=== PATIENT | female | born 1995 | race American Indian/Alaskan Native ===

== ENCOUNTER 2017-05-28 22:36 | Emergency (ER) | payer MEDICAID, OTHER ==
[2017-05-28 22:59] VITALS: BP 111/68
[2017-05-28 23:22] LABS: Basophils % (Auto) 0.9 % (0.0-1.8); Eosinophils % (Auto) 7.2 % (0.0-4.3); Hematocrit 36.1 % (30.3-42.9); Hemoglobin 11.7 gm/dl (10.1-14.3); Mean Corpuscular HGB Conc 32 % (30-34); Mean Corpuscular Hemoglobin 29 pg (28-32); Mean Corpuscular Volume 88 fl (79-97); Platelet Count 164 K/mm3 (140-440); Red Blood Count 4.08 M/mm3 (3.65-5.03); Red Cell Distribution Width 14.1 % (13.2-15.2); White Blood Count 6.3 K/mm3 (4.5-11.0)
[2017-05-28 23:44] LABS: Alanine Aminotransferase 12 units/L (7-56); Albumin 4.4 g/dL (3.9-5); Albumin/Globulin Ratio 1.6 %; Alkaline Phosphatase 49 units/L (35-129); Anion Gap 12 mmol/L; Blood Urea Nitrogen 12 mg/dL (7-17); Calcium 9.2 mg/dL (8.4-10.2); Carbon Dioxide 30 mmol/L (22-30); Chloride 98.9 mmol/L (98-107); Glucose 97 mg/dL (65-100); Potassium 3.6 mmol/L (3.6-5.0); Sodium 137 mmol/L (137-145); Total Protein 7.2 g/dL (6.3-8.2)
[2017-05-29 00:48] LABS: Bilirubin,Urine NEG (Negative); Blood,Urine NEG (Negative); Ketones,Urine NEG (Negative); Leukocyte Esterase,Urine NEG (Negative); Mucus,Urine 2+ /HPF; Nitrite,Urine NEG (Negative); Protein,Urine <15 mg/dL mg/dL (Negative); Urobilinogen,Urine < 2.0 mg/dL (<2.0)
--- NOTE | 2017-05-29 10:43 | ED Elopement Review ---
ED Pt Elopement review - Results review Lab results: Laboratory Tests 05/28/17 05/28/17 05/28/17 23:02 23:02 23:02 WBC 6.3 RBC 4.08 Hgb 11.7 Hct 36.1 MCV 88 MCH 29 MCHC 32 RDW 14.1 Plt Count 164 Lymph % (Auto) 46.5 H [place] % (Auto) 8.1 H Eos % (Auto) 7.2 H Baso % (Auto) 0.9 Lymph # 2.9 [place] # 0.5 Eos # 0.5 H Baso # 0.1 Seg Neutrophils % 37.3 L Seg Neutrophils # 2.3 Sodium 137 Potassium 3.6 Chloride 98.9 Carbon Dioxide 30 Anion Gap 12 BUN 12 Creatinine 0.5 L Estimated GFR > 60 BUN/Creatinine Ratio 24.00 Glucose 97 Calcium 9.2 Total Bilirubin 0.30 AST 15 ALT 12 Alkaline Phosphatase 49 Total Protein 7.2 Albumin 4.4 Albumin/Globulin Ratio 1.6 HCG, Qual Negative Urine Color Urine Turbidity Urine pH Ur Specific [place] Urine Protein Urine Glucose (UA) Urine Ketones Urine Blood Urine Nitrite Urine Bilirubin Urine Urobilinogen Ur Leukocyte Esterase Urine WBC (Auto) Urine RBC (Auto) U Epithel Cells (Auto) Urine Mucus 05/29/17 00:26 WBC RBC Hgb Hct MCV MCH MCHC RDW Plt Count Lymph % (Auto) [place] % (Auto) Eos % (Auto) Baso % (Auto) Lymph # [place] # Eos # Baso # Seg Neutrophils % Seg Neutrophils # Sodium Potassium Chloride Carbon Dioxide Anion Gap BUN Creatinine Estimated GFR BUN/Creatinine Ratio Glucose Calcium Total Bilirubin AST ALT Alkaline Phosphatase Total Protein Albumin Albumin/Globulin Ratio HCG, Qual Urine Color Yellow Urine Turbidity Clear Urine pH 6.0 Ur Specific [place] 1.028 Urine Protein <15 mg/dl Urine Glucose (UA) Neg Urine Ketones Neg Urine Blood Neg Urine Nitrite Neg Urine Bilirubin Neg Urine Urobilinogen < 2.0 Ur Leukocyte Esterase Neg Urine WBC (Auto) 1.0 Urine RBC (Auto) 6.0 U Epithel Cells (Auto) 2.0 Urine Mucus 2+ - Call Back decision Pt Call Back Decision: No action required
== END 2017-05-29 01:50 | disposition left against medical advice (07) ==
LOC: ED 22:36
DX: R10.30 Lower abdominal pain, unspecified (principal); J45.909 Unspecified asthma, uncomplicated; Z53.21 Procedure and treatment not carried out due to patient leaving prior to being seen by health care provider
CPT/HCPCS: 36415; 80053; 81001; 84703; 85025

== ENCOUNTER 2018-07-18 12:06 | Outpatient (CLI) | payer SELFPAY ==
[2018-07-18] MEDS ORDERED: LACTATED RINGERS 500 ML IV ONE (14:00)
--- NOTE | 2018-07-18 15:16 | Ultrasound Report ---
FINAL REPORT PROCEDURE: US OB BPP WO NON-STRESS TECHNIQUE: Sonographic evaluation for breathing, movement, tone, and amniotic fluid volume was performed. CPT 86033 HISTORY: decrease movement COMPARISON: No prior studies are available for comparison. FINDINGS: Amniotic fluid volume: Normal-score 2. At least one vertical pocket > 2 cm or more in vertical axis. breathing: Normal-score 2. movement: Normal-score 2. tone: Normal. Score: 8 of 8. heart rate of 147 beats per minute is detected. Subjectively the amount of amniotic fluid appears normal. Further evaluation was neither requested nor performed. IMPRESSION: Biophysical profile score 8/8. heart rate 147 beats per minute. Subjectively the amount of amniotic fluid appears normal. Further evaluation was neither requested nor performed.
--- NOTE | 2018-07-18 15:28 | Ultrasound Report ---
FINAL REPORT PROCEDURE: US OB LIMITED TECHNIQUE: Limited OB ultrasound performed to evaluate position amniotic fluid index HISTORY: labor COMPARISON: FINDINGS: Single living intrauterine gestation visualized currently vertex presentation with a heart rate of 140 beats per minute. Subjectively the amount of amniotic fluid appears normal. Normal amniotic fluid index measured 18.6 centimeter. Cervix length 3.4 centimeters. Detailed exam of the anatomy was not performed as this was not requested. No placenta previa visualized. The placenta appears to be located anterior grade 1. IMPRESSION: Single living intrauterine gestation visualized currently vertex presentation. Both subjectively and by amniotic fluid index the amount of amniotic fluid appears normal. Further evaluation was neither requested nor performed.
== END 2018-07-18 15:30 | disposition home or self-care (01) ==
LOC: TRG 12:06
PROVIDERS: ATTEND Obstetrics & Gynecology
DX: O47.03 False labor before 37 completed weeks of gestation, third trimester (principal); O26.893 Other specified pregnancy related conditions, third trimester; K21.9 Gastro-esophageal reflux disease without esophagitis; J45.909 Unspecified asthma, uncomplicated; Z3A.32 32 weeks gestation of pregnancy
CPT/HCPCS: 59025; 76815; 76819

== ENCOUNTER 2018-08-02 06:28 | Outpatient (CLI) | payer OTHER ==
[2018-08-02 06:46] VITALS: BP 125/75
[2018-08-02] MEDS ORDERED: LACTATED RINGERS 1,000 ML ONE (07:20)
[2018-08-02] MEDS ORDERED: LACTATED RINGERS 500 ML IV ONE ×2 (08:20→10:09)
--- NOTE | 2018-08-02 09:57 | Ultrasound Report ---
ULTRASOUND BIOPHYSICAL PROFILE: History: Prolonged heart decelerations in triage Technique: Transabdominal ultrasound with Doppler interrogation. 2 - breathing movements 2 - movements 2 - posture and tone 2 - Qualitative amniotic fluid volume 8 - TOTAL SCORE OF POSSIBLE 8 Heart Rate (bpm) 137
--- NOTE | 2018-08-02 09:58 | Ultrasound Report ---
ULTRASOUND OB LIMITED History: Prolonged heart decelerations in triage Technique: Transabdominal ultrasound with Doppler interrogation. Gestation: Single Position: Cephalic Amniotic Fluid: Normal CARLI = 14.1 cm Heart Rate: 143 BPM
[2018-08-02] MEDS ORDERED: BRETHINE SUB-Q SCH (11:00)
== END 2018-08-02 10:30 | disposition home or self-care (01) ==
LOC: TRG 06:28 → LD 08:58 → TRG 10:30
PROVIDERS: ATTEND Obstetrics & Gynecology
DX: O62.8 Other abnormalities of forces of labor (principal); O99.513 Diseases of the respiratory system complicating pregnancy, third trimester; Z3A.34 34 weeks gestation of pregnancy
CPT/HCPCS: 76815; 76819; J3105; J7120; 59025; 96372

== ENCOUNTER 2018-08-05 17:07 | Outpatient (CLI) | payer MEDICAID, OTHER ==
[2018-08-05] MEDS ORDERED: LACTATED RINGERS 500 ML IV ONE (17:22)
[2018-08-05 18:13] VITALS: BP 119/75
[2018-08-05 18:15] LABS: Bacteria,Urine 1+ /HPF (Negative); Bilirubin,Urine NEG (Negative); Blood,Urine NEG (Negative); Color,Urine Yellow (Yellow); Mucus,Urine FEW /HPF; Protein,Urine <15 mg/dL mg/dL (Negative); Urobilinogen,Urine < 2.0 mg/dL (<2.0)
== END 2018-08-05 19:32 | disposition home or self-care (01) ==
LOC: TRG 17:07
PROVIDERS: ATTEND Obstetrics & Gynecology
DX: O47.03 False labor before 37 completed weeks of gestation, third trimester (principal); O99.613 Diseases of the digestive system complicating pregnancy, third trimester; O99.513 Diseases of the respiratory system complicating pregnancy, third trimester; K21.9 Gastro-esophageal reflux disease without esophagitis; J45.909 Unspecified asthma, uncomplicated; Z3A.35 35 weeks gestation of pregnancy
CPT/HCPCS: 59025; 81001

== ENCOUNTER 2018-08-27 18:03 | Outpatient (CLI) | payer MEDICAID ==
[2018-08-27 18:24] VITALS: BP 132/89
== END 2018-08-27 20:13 | disposition home or self-care (01) ==
LOC: TRG 18:03
PROVIDERS: ATTEND Obstetrics & Gynecology
DX: O47.1 False labor at or after 37 completed weeks of gestation (principal); O99.613 Diseases of the digestive system complicating pregnancy, third trimester; O99.513 Diseases of the respiratory system complicating pregnancy, third trimester; J45.909 Unspecified asthma, uncomplicated; K21.9 Gastro-esophageal reflux disease without esophagitis; Z3A.38 38 weeks gestation of pregnancy
CPT/HCPCS: 59025

== ENCOUNTER 2018-08-28 01:39 | Inpatient (IN) | payer MEDICAID ==
[2018-08-28] MEDS ORDERED: LACTATED RINGERS 2,000 ML ONE (04:52)
[2018-08-28] MEDS ORDERED: BRETHINE SUB-Q PRN (05:13)
[2018-08-28] MEDS ORDERED: MINERAL OIL PO PRN (05:13)
[2018-08-28] MEDS ORDERED: BRETHINE IVP PRN (05:13)
[2018-08-28] MEDS ORDERED: SUBLIMAZE IV PRN (05:13)
[2018-08-28 05:34] LABS: Hematocrit 35.5 % (30.3-42.9); Hemoglobin 11.5 gm/dl (10.1-14.3); Mean Corpuscular HGB Conc 33 % (30-34); Mean Corpuscular Hemoglobin 28 pg (28-32); Mean Corpuscular Volume 86 fl (79-97); Platelet Count 199 K/mm3 (140-440); Red Blood Count 4.11 M/mm3 (3.65-5.03); Red Cell Distribution Width 14.3 % (13.2-15.2)
[2018-08-28] MEDS ORDERED: NARCAN 2 MG/2 ML IV PRN (05:50)
[2018-08-28] MEDS ORDERED: PITOCin/NS 30 UNIT/500ML 30 UNITS/500 ML BAG IV SCH (06:00)
[2018-08-28] MEDS ORDERED: PITOCin/NS 20 UNIT/1000ML DRIP 20 UNITS/1,000 ML BAG IV SCH (06:00)
[2018-08-28] MEDS ORDERED: LACTATED RINGERS 1,000 ML IV SCH (06:00)
[2018-08-28] MEDS ORDERED: fentaNYL-BUPIV 2 MCG/ML-0.125% 200 MCG/100 ML BAG EPIDURAL SCH (06:00)
[2018-08-28] MEDS ORDERED: XYLOCAINE 2% INFILTRATI ONE ×2 (06:42→06:43)
--- NOTE | 2018-08-28 07:31 | History and Physical Report ---
History of Present Illness Date of examination: 08/28/18 Date of admission: 08/28/18 04:52 Chief complaint: I'm in labor History of present illness: Patient is a 23 year old Past History Past Medical History: asthma Past Surgical History: no surgical history Family/Genetic History: none Social history: single - Obstetrical History Expected Date of Delivery: 09/08/18 Actual Gestation: 38 Week(s) 3 Day(s) : 2 Number of Living Children: 1 Medications and Allergies Allergies Allergy/AdvReac Type Severity Reaction Status Date / Time No Known Allergies Allergy Verified 04/14/15 16:40 Home Medications Medication Instructions Recorded Confirmed Last Taken Type Pnv 21/Iron Ps,Heme Ppep/Folic 1 each PO QDAY #30 tablet 03/29/14 08/27/18 2 Days Ago Rx [Prefera Ob Tablet] ~08/25/18 Active Meds: Active Medications Ephedrine Sulfate (Ephedrine Sulfate) 10 mg IV Q2M PRN PRN Reason: Hypotension Fentanyl (Sublimaze) 100 mcg IV Q2H PRN PRN Reason: Labor Pain Last Admin: 08/28/18 06:28 Dose: 100 mcg Lactated Ringer's (Lactated Ringers) 1,000 mls @ 125 mls/hr IV DIRECT EVA Last Admin: 08/28/18 05:04 Dose: 125 mls/hr Oxytocin/Sodium Chloride (Pitocin/Ns 20 Unit/1000ml Drip) 20 units in 1,000 mls @ 125 mls/hr IV DIRECT EVA Oxytocin/Sodium Chloride (Pitocin/Ns 30 Unit/500ml) 30 units in 500 mls @ 1 mls /hr IV TITR EVA; Protocol Fentanyl/Bupivacaine/Sodium Chlor (Fentanyl-Bupiv 2 Mcg/Ml-0.125%) 200 mcg in 100 mls @ 12 mls/hr EPIDURAL TITR EVA; Protocol Mineral Oil (Mineral Oil) 30 ml PO QHS PRN PRN Reason: Constipation Naloxone HCl (Narcan 2 Mg/2 Ml) 0.2 mg IV Q5M PRN PRN Reason: Respiratory sedation Terbutaline Sulfate (Brethine) 0.25 mg SUB-Q ONCE PRN PRN Reason: Hyperstimulation/Hypertonicity Terbutaline Sulfate (Brethine) 0.25 mg IVP ONCE PRN PRN Reason: Hyperstimulation/Hypertonicity Review of Systems All systems: negative Genitourinary: leakage of fluid, contractions - Vital Signs Vital signs: Vital Signs Pulse BP 87 129/78 08/28/18 02:17 08/28/18 02:17 Temp Pulse Resp BP Pulse Ox 98 F 88 18 129/63 97 08/28/18 05:30 08/28/18 07:25 08/28/18 05:30 08/28/18 07:25 08/28/18 06:56 - Physical Exam Breasts: Cardiovascular: Regular rate, Normal S1, Normal S2 Lungs: Positive: Clear to auscultation, Normal air movement Abdomen: Positive: normal appearance, soft, normal bowel sounds. Negative: distention, tenderness Genitourinary (Female): Positive: normal external genitalia, normal perenium Vulva: both: normal Vagina: Positive: normal moisture. Negative: discharge Cervix: Negative: lesion, discharge Uterus: Positive: normal size, normal contour Adnexa: both: normal Anus/Rectum: Positive: normal perianal skin, heme negative. Negative: rectal mass, hemorrhoids Extremities: Deep Tendon Reflex Grade: Normal +2 - Obstetrical Cervical Dilatation: 7 Cervical Effacement Percentage: 90 station: -1 Uterine Contraction Pattern: Regular Uterine Contraction Intensity: Moderate Results Result Diagrams: 08/28/18 04:59 Abnormal lab results 08/28/18 Range/Units 04:59 WBC 11.9 H (4.5-11.0) K/mm3 All other labs normal. Assessment and Plan IUP at 38.3 in active labor. Admit to l&D. GBS negative. Patient has had good care since first trimester. Anticipate .
--- NOTE | 2018-08-28 07:36 | Procedure Note ---
OB Delivery Note - Delivery Date of Delivery: 08/28/18 Surgeon: ELEUTERIO HERNANDEZ Estimated blood loss: 200cc - Vaginal Delivery presentation: vertex Delivery position: OA Intrapartum events: none Delivery induction: none Delivery monitor: external FHT, external uterine Route of delivery: Delivery placenta: spontaneous Delivery cord: 3 umbilical vessels Episiotomy: none Delivery laceration: none Anesthesia: none Delivery comments: Viable male delivered over intact perineum at 0701. NO nuchal cord. Apgars 9,9.Weight 6 pounds 15 ounces. Placenta delivered spontaneously and intact with 3vc. No lacerations. Excellent hemostasis. patient tolerated procedure well - Infant A at 1 minute: 9 at 5 minutes: 9 Infant Gender: Male
[2018-08-28] MEDS ORDERED: NORCO 5/325 PO PRN (07:53)
[2018-08-28] MEDS ORDERED: PHENERGAN PR PRN (11:56)
[2018-08-28] MEDS ORDERED: TUCKS PAD TP PRN (11:56)
[2018-08-28] MEDS ORDERED: MILK OF MAGNESIA PO PRN (11:56)
[2018-08-28] MEDS ORDERED: TYLENOL PO PRN (11:56)
[2018-08-28] MEDS ORDERED: BENADRYL PO PRN (11:56)
[2018-08-28] MEDS ORDERED: PHENERGAN PO PRN (11:56)
[2018-08-28] MEDS ORDERED: SODIUM CHLORIDE FLUSH SYRINGE 10 ML IV NR (11:56)
[2018-08-28] MEDS ORDERED: DULCOLAX PR PRN (11:56)
[2018-08-28] MEDS ORDERED: LANSINOH TP PRN (11:56)
[2018-08-28] MEDS ORDERED: ZOFRAN IV PRN (11:56)
[2018-08-28] MEDS: MOTRIN PO SCH ×2 (12:35→18:23)
[2018-08-28] MEDS: NORCO 5/325 PO PRN ×2 (15:04→20:11)
[2018-08-28 20:24] LABS: Hemoglobin 10.1 gm/dl (10.1-14.3)
[2018-08-29] MEDS: MOTRIN PO SCH ×4 (00:06→18:10)
[2018-08-29] MEDS: NORCO 5/325 PO PRN ×6 (00:11→22:01)
[2018-08-29] MEDS: COLACE PO SCH ×2 (09:39→22:04)
[2018-08-29] MEDS: PRENATAL VITAMIN PO SCH (09:39)
--- NOTE | 2018-08-29 10:36 | Progress Note ---
Assessment and Plan PPD 1 s/p . Doing well. Patient states that she has back pain from where the epidural was attempted and is requesting stronger pain meds. I advised patien that the area was probably bruised and that she should try ice packs to help resolve the inflammation. Patient not sure if she wants to be discharged on today or not. Subjective - Subjective Date of service: 08/29/18 Interval history: Patient is a 23 year old Patient reports: appetite normal, voiding normally, pain well controlled, ambulating normally Gregory: doing well Objective - Vital Signs Latest vital signs: Vital Signs Temp Pulse Resp BP BP Pulse Ox 08/29/18 09:38 18 08/29/18 08:44 98.5 F 75 18 112/68 94 08/29/18 05:35 18 08/29/18 05:30 18 08/29/18 01:11 18 08/29/18 01:06 18 08/29/18 00:11 18 08/29/18 00:09 98.2 F 81 16 108/61 97 08/29/18 00:06 18 08/28/18 21:11 18 08/28/18 20:20 98.2 F 85 18 114/63 98 08/28/18 12:02 98 F 89 20 125/56 98 - Exam Cardiovascular: Present: Regular rate, Normal S1, Normal S2 Lungs: Present: Clear to auscultation Abdomen: Present: normal appearance, soft Uterus: Present: normal, firm Extremities: Present: normal
[2018-08-30] MEDS: MOTRIN PO SCH (00:30)
[2018-08-30] MEDS: NORCO 5/325 PO PRN ×5 (03:06→20:28)
--- NOTE | 2018-08-30 07:46 | Progress Note ---
Assessment and Plan A: PPD#2 s/p at term, Continued pain at epidural site P: Anesthesia consult Abdominal binder Milk of Magnesia PRN Anticipate discharge later today Subjective - Subjective Date of service: 08/30/18 Principal diagnosis: s/p at term Interval history: Pt continues to report pain at the epidural site. Otherwise, she reports that her pain is not well controlled yet. No issues ambulating or voiding. Patient reports: appetite normal, voiding normally, pain poorly controlled, ambulating normally, no nauseated : doing well Objective - Vital Signs Latest vital signs: Vital Signs Temp Pulse Resp BP BP Pulse Ox 08/30/18 01:03 98 F 80 20 114/73 08/29/18 18:10 18 08/29/18 16:21 98.4 F 70 16 106/57 95 08/29/18 13:50 18 08/29/18 12:25 18 08/29/18 09:38 18 08/29/18 08:44 98.5 F 75 18 112/68 94 Intake and Output 08/29/18 08/30/18 08/30/18 22:59 06:59 14:59 Intake Total 360 480 Balance 360 480 Intake: Intake, Free Water 360 480 Other: # Voids Void 2 5 - Exam Breasts: Present: deferred Cardiovascular: Present: Regular rate Lungs: Present: Clear to auscultation Abdomen: Present: soft Uterus: Present: fundal height below umbilicus Extremities: Present: normal
--- NOTE | 2018-08-30 07:48 | Discharge Summary ---
Providers - Providers Date of Admission: 08/28/18 04:52 Date of discharge: 08/30/18 Attending physician: LUCIANA VILLELA 08/30/18 07:43 Consult to Anesthesiology [CONS] Routine Reason For Exam: PPD#2 s/p , pain at epidural site Consulting Provider: JUAN ARMAS Primary care physician: LUCIANA VILLELA Hospitalization Reason for admission: active labor Delivery: Procedure details: Please see delivery note. Episiotomy: none Laceration: none Other procedures: none Discharge diagnosis: IUP at term delivered baby: male Hospital course: Pt was admitted in active labor and went on to have a spontaneous vaginal delivery which she tolerated well. Her course was complicated by pain at the epidural site which was evaluated by anesthesia. She was discharged on PPD#2 and she will follow up in 2 weeks in the office with Dr Villela. Condition at discharge: Stable Disposition: DC-01 TO HOME OR SELFCARE - Discharge Diagnoses (1) Term of male Status: Acute (2) Anemia Status: Acute Qualifiers: Anemia type: unspecified type Qualified Code(s): D64.9 - Anemia, unspecified Plan - Discharge Medications Prescriptions: HYDROcodone/ACETAMINOPHEN [Warren 5-325 Tablet] 1 each PO Q4H #20 tablet Ibuprofen [Motrin] 800 mg PO Q8HR PRN #40 tablet PRN Reason: Pain, Mild (1-3) - Provider Discharge Summary Activity: routine, no sex for 6 weeks, no heavy lifting 4 weeks, no strenuous exercise Diet: routine Instructions: routine Additional instructions: [] Smoking cessation referral if applicable(refer to patient education folder for contact #) [] Refer to [facility] Book[facility] Call your doctor immediately for: * Fever > 100.5 * Heavy vaginal bleeding ( >1 pad per hour) * Severe persistent headache * Shortness of breath * Reddened, hot, painful area to leg or breast * Drainage or odor from incision. * Keep incision clean and dry at all times and follow doctor's instructions regarding bathing/showering Please schedule your son's circumcision before he is one month old. - Follow up plan Follow up: LUCIANA VILLELA MD [Primary Care Provider] - 09/13/18 (Please schedule follow up appt ) Forms: [facility] Discharge Summary
[2018-08-30] MEDS: MOTRIN PO PRN ×3 (08:37→23:57)
[2018-08-30] MEDS: PRENATAL VITAMIN PO SCH (10:30)
[2018-08-30] MEDS: COLACE PO SCH ×2 (10:31→22:07)
[2018-08-30] MEDS: FLEXERIL PO SCH ×2 (14:49→20:27)
[2018-08-30 16:08] LABS: INR 0.91 (0.87-1.13)
[2018-08-30 16:09] LABS: Partial Thromboplastin Time 27.3 Sec. (24.2-36.6)
--- NOTE | 2018-08-30 17:45 | Event Note ---
Date: 08/30/18 The patient has been evaluated by anesthesia. The recommendation is for Flexeril overnight. Her discharge has been held until tomorrow. If her pain is not improved by tomorrow, plans for additional imaging to ascertain the cause of persistent back pain. Continue to monitor clinically.
[2018-08-31] MEDS: NORCO 5/325 PO PRN ×4 (04:01→14:19)
--- NOTE | 2018-08-31 07:32 | Progress Note ---
Subjective Date of service: 08/31/18 Principal diagnosis: s/p Interval history: Patient states there is no interval worsening of her leg symptoms overnight since institution of using flexeril 5mg TID. Patient is walking to the restroom with full strength and stability. No focal neurlogic deficits. States there is an underlying ache of 4/10 and a intermittent throb of pain elevating to 6/10. She has been asking for [place] every 4 hours. Patient has 5/5 strength in bilateral lower limbs. Symmetric sensation to soft touch in bilateral lower limbs. Patients PT/PTT in normal range Back Pain: Back Pain A common occurrence. Most often from attempted epidural placement, , Positioning during labor, or Gestation Continue [place], and Ibuprofen as ordered Increase Flexeril to 10mg TID Unlikely of expanding hematoma Will order Spine CT to completely rule out Objective - Constitutional Vitals: Vital Signs - 12hr 08/30/18 08/30/18 08/31/18 20:28 23:57 00:00 Temperature 98.2 F Pulse Rate 72 Respiratory 20 20 18 Rate Blood Pressure 127/54 [Left] 08/31/18 04:01 Temperature Pulse Rate Respiratory 18 Rate Blood Pressure [Left] - Labs CBC & Chem 7: 08/28/18 20:05
--- NOTE | 2018-08-31 08:15 | Progress Note ---
Assessment and Plan A: PPD#3 s/p at term, Continued pain at epidural site P: Follow up CT scan Anticipate discharge later today with follow up in 1 week in the office - Patient Problems (1) Term of male Current Visit: Yes Status: Acute (2) Anemia Current Visit: Yes Status: Acute Qualifiers: Anemia type: unspecified type Qualified Code(s): D64.9 - Anemia, unspecified Subjective - Subjective Date of service: 08/31/18 Principal diagnosis: s/p at term, back pain Interval history: Discharge held yesterday for observation of back pain. Pain still remains. CT lumbar spine ordered. Plan to increase Flexeril to 10mg and observe pattern. No other obstetric complaints. Patient reports: appetite normal, voiding normally, flatus, pain poorly controlled, ambulating normally, no bowel movement [place]: doing well Objective - Vital Signs Latest vital signs: Vital Signs Temp Pulse Resp BP 08/31/18 04:01 18 08/31/18 00:00 98.2 F 72 18 127/54 08/30/18 23:57 20 08/30/18 20:28 20 08/30/18 16:02 98.6 F 73 18 133/87 08/30/18 09:13 98.0 F 76 18 135/69 Intake and Output 08/30/18 08/31/18 08/31/18 22:59 06:59 14:59 Intake Total 240 600 Balance 240 600 Intake: Oral 240 600 Other: Total, Intake Amount 240 120 # Voids Void 1 - Exam Breasts: Present: deferred Cardiovascular: Present: Regular rate Lungs: Present: Clear to auscultation Abdomen: Present: soft Uterus: Present: fundal height below umbilicus Extremities: Present: normal
--- NOTE | 2018-08-31 08:24 | Cat Scan Report ---
CT SCAN OF THE LUMBAR SPINE: HISTORY: Rule out epidural hematoma. TECHNIQUE: Contiguous 1.25 mm axial images of the lumbar spine were obtained. Sagittal and coronal reformatted images. FINDINGS: There is normal alignment of the lumbar spine. The body, pedicles and posterior ligaments appear normal. No evidence of fracture or subluxation is seen. The spinal canal appears normal. The prevertebral soft tissues appear normal. IMPRESSION: Unremarkable CT of the lumbar spine. Please note that intraspinal contents are poorly imaged on noncontrast CT. No large epidural hematoma is suspected on this limited exam. If further evaluation is needed MRI would provide the most information.
[2018-08-31] MEDS: FLEXERIL PO SCH ×2 (08:58→14:19)
[2018-08-31] MEDS: PRENATAL VITAMIN PO SCH (08:58)
[2018-08-31] MEDS: COLACE PO SCH (08:58)
[2018-08-31] MEDS: MOTRIN PO PRN (10:42)
[2018-08-31 16:43] VITALS: BP 122/69
== END 2018-08-31 16:30 | disposition home or self-care (01) | DRG 774 ==
LOC: TRG 01:39 → LD 04:52 → OB 11:14
PROVIDERS: ADMIT Obstetrics & Gynecology; ATTEND Obstetrics & Gynecology
PROC: 10E0XZZ Delivery of Products of Conception, External Approach (ICD-10-PCS; principal; 2018-08-28)
DX: O99.52 Diseases of the respiratory system complicating childbirth (principal); O90.89 Other complications of the puerperium, not elsewhere classified; M54.9 Dorsalgia, unspecified; Z37.0 Single live birth; Z3A.38 38 weeks gestation of pregnancy; Z79.899 Other long term (current) drug therapy
CPT/HCPCS: 36415; 72131; 85014; 85018; 85027; 85610; 85730; 86592; 86850; 86900; 86901; 99211; G0463; J2590; J3010; J7120

== ENCOUNTER 2019-11-15 00:23 | Emergency (ER) | payer BC, MEDICAID | END 2019-11-15 09:55 | disposition home or self-care (01) | LOC: ED 00:23 | DX: Z79.899 Other long term (current) drug therapy (principal) | CPT/HCPCS: 87400 ==

== ENCOUNTER 2019-11-15 11:20 | Emergency (ER) | payer SELFPAY | END 2019-11-15 11:39 | disposition left against medical advice (07) | LOC: ED 11:20 | DX: R50.9 Fever, unspecified (principal); Z53.21 Procedure and treatment not carried out due to patient leaving prior to being seen by health care provider | CPT/HCPCS: 99281 ==

== ENCOUNTER 2021-06-02 13:22 | Emergency (ER) | payer SELFPAY ==
[2021-06-02 14:23] VITALS: BP 108/60
[2021-06-02 16:01] LABS: Bacteria,Urine 1+ /HPF (Negative); Bilirubin,Urine NEG (Negative); Blood,Urine NEG (Negative); Color,Urine Yellow (Yellow); Mucus,Urine 2+ /HPF; Protein,Urine <15 mg/dL mg/dL (Negative); Urobilinogen,Urine < 2.0 mg/dL (<2.0)
[2021-06-02 16:04] LABS: HCG Qualitative,Urine Negative (Negative)
[2021-06-02 16:42] LABS: Basophils % (Auto) 0.5 % (0.0-1.8); Eosinophils # (Auto) 0.6 K/mm3 (0.0-0.4); Hematocrit 42.5 % (30.3-42.9); Lymphocytes # (Auto) 2.8 K/mm3 (1.2-5.4); Lymphocytes % (Auto) 34.9 % (13.4-35.0); Mean Corpuscular HGB Conc 33 % (30-34); Mean Corpuscular Volume 92 fl (79-97); Monocytes # (Auto) 0.6 K/mm3 (0.0-0.8); Monocytes % (Auto) 7.5 % (0.0-7.3); Platelet Count 188 K/mm3 (140-440); Red Blood Count 4.62 M/mm3 (3.65-5.03); Red Cell Distribution Width 12.9 % (13.2-15.2)
--- NOTE | 2021-06-02 16:50 | Emergency Department Report ---
ED General Adult HPI - General Chief complaint: Abdominal Pain Stated complaint: / CRAMPING/ LOWER ABDOMINAL PAIN Time Seen by Provider: 06/02/21 15:31 Source: patient Mode of arrival: Ambulatory Limitations: No Limitations - History of Present Illness Initial comments: Patient is a 26-year-old female presents emergency room complaints of lower abdominal cramping that began last night. She states that she believes she may be . She reports that she took an at home test and states it was positive. Her last menstrual cycle was 05/02/2021. She denies any fever, nausea, vomiting, diarrhea, urinary symptoms, abnormal vaginal discharge, vaginal bleeding. pmhx childhood asthma. No allergies medications. - Related Data Previous Rx's Medication Instructions Recorded Last Taken Type Pnv 21/Iron Ps,Heme Ppep/Folic 1 each PO QDAY #30 tablet 03/29/14 08/26/18 10:00 Rx [Prefera Ob Tablet] HYDROcodone/ACETAMINOPHEN [[place] 1 each PO Q4H #20 tablet 08/28/18 Unknown Rx 5-325 Tablet] Ibuprofen [Motrin] 800 mg PO Q8HR PRN #40 tablet 08/28/18 Unknown Rx Cyclobenzaprine [Flexeril] 10 mg PO TID PRN #30 tablet 08/31/18 Unknown Rx Oseltamivir [Tamiflu] 75 mg PO BID 5 Days #10 capsule 11/15/19 Unknown Rx Allergies Allergy/AdvReac Type Severity Reaction Status Date / Time No Known Allergies Allergy Verified 06/02/21 14:19 ED Review of Systems ROS: Stated complaint: / CRAMPING/ LOWER ABDOMINAL PAIN Other details as noted in HPI Comment: All other systems reviewed and negative ED Past Medical Hx - Past Medical History Hx Hypertension: No Hx Congestive Heart Failure: No Hx Diabetes: No Hx Deep Vein Thrombosis: No Hx Renal Disease: No Hx Sickle Cell Disease: No Hx Seizures: No Hx Asthma: Yes (childhood) Hx COPD: No Hx HIV: No - Surgical History Past Surgical History?: No - Social History Smoking Status: Never Smoker Substance Use Type: None - Medications Home Medications: Home Medications Medication Instructions Recorded Confirmed Last Taken Type Pnv 21/Iron Ps,Heme Ppep/Folic 1 each PO QDAY #30 tablet 03/29/14 08/28/18 08/26/18 10:00 Rx [Prefera Ob Tablet] HYDROcodone/ACETAMINOPHEN [[place] 1 each PO Q4H #20 tablet 08/28/18 Unknown Rx 5-325 Tablet] Ibuprofen [Motrin] 800 mg PO Q8HR PRN #40 tablet 08/28/18 Unknown Rx Cyclobenzaprine [Flexeril] 10 mg PO TID PRN #30 tablet 08/31/18 Unknown Rx Oseltamivir [Tamiflu] 75 mg PO BID 5 Days #10 capsule 11/15/19 Unknown Rx ED Physical Exam - General Limitations: No Limitations General appearance: alert, in no apparent distress - Head Head exam: Present: atraumatic, normocephalic - Eye Eye exam: Present: normal appearance - ENT ENT exam: Present: mucous membranes moist - Respiratory Respiratory exam: Present: normal lung sounds bilaterally. Absent: respiratory distress, wheezes, rales, rhonchi, stridor, chest wall tenderness, accessory muscle use, decreased breath sounds, prolonged expiratory - Cardiovascular Cardiovascular Exam: Present: regular rate, normal rhythm, normal heart sounds. Absent: systolic murmur, diastolic murmur, rubs, gallop - GI/Abdominal GI/Abdominal exam: Present: soft, normal bowel sounds. Absent: distended, tenderness, guarding, rebound, rigid - Neurological Exam Neurological exam: Present: alert, oriented X3 - Psychiatric Psychiatric exam: Present: normal affect, normal mood - Skin Skin exam: Present: warm, dry, intact ED Course Vital Signs 06/02/21 14:21 Temperature 98.8 F Pulse Rate 82 Respiratory 18 Rate Blood Pressure 108/60 O2 Sat by Pulse 100 Oximetry ED Medical Decision Making - Lab Data Result diagrams: 06/02/21 15:35 06/02/21 15:35 - Radiology Data Radiology results: report reviewed Ordering Physician: JAROCHO GALLARDO Date of Service: 06/02/21 Procedure(s): US OB <= 14 weeks fetus Accession Number(s): [id number] cc: JAROCHO GALLARDO TRANSABDOMINAL AND TRANSVAGINAL OB PELVIC ULTRASOUND INDICATION / CLINICAL INFORMATION: Pelvic pain and cramping. COMPARISON: None available. FINDINGS: Transabdominal: The uterus measures 9.9 x 4.2 x 4.4 cm. There is a 5 week 2 day gestational sac in the uterine fundus. No fibroids are seen. The right ovary measures 3.1 x 2.1 x 2.3 cm and the left ovary 3.9 x 2.3 x 2.8 cm. There is normal blood flow to both ovaries on Doppler exam. There is no evidence of extraovarian mass or free fluid. Images of the urinary bladder are normal. Transvaginal: There is an intrauterine gestational sac. There is a questionable pole. No cardiac activity is seen. I do not identify a yolk sac. No implantation hemorrhage is appreciated. The right ovary measures 3.4 x 1.9 x 2.7 cm and contains a 1.9 cm corpus luteal cyst. The left ovary measures 2.2 x 1.5 x 1.7 cm. I see no evidence of extraovarian mass or free fluid. IMPRESSION: 1. 5 week 2 day intrauterine is of uncertain viability. A follow-up ultrasound in 7-10 days may be helpful in further evaluation. 2. No evidence of extraovarian mass or free fluid. Signer Name: Vega East MD Signed: 06/02/2021 7:42 PM Workstation Name: [id number] Transcribed By: RT Dictated By: Vega East MD Electronically Authenticated By: Vega East MD Signed Date/Time: 06/02/211941 DD/ 34 TD/TT: - Medical Decision Making Patient is a 26-year-old female presents emergency room complaints of lower abdominal cramping that began last night. She states that she believes she may be . She reports that she took an at home test and states it was positive. Her last menstrual cycle was 05/02/2021. She denies any fever, nausea, vomiting, diarrhea, urinary symptoms, abnormal vaginal discharge, vaginal bleeding. pmhx childhood asthma. No allergies medications. Vitals are normal. No abdominal tenderness on exam, no guarding, no rebound no rigidity, normal sounds no peritoneal signs. UA without evidence of UTI, there are many epithelial cells likely due to contamination, patient is not having urinary symptoms. Urine is negative. Labs ordered. hCG quant is 3937. OB ultrasound: 1. 5 week 2 day intrauterine is of uncertain viability. A follow-up ultrasound in 7-10 days may be helpful in further evaluation. 2. No evidence of extraovarian mass or free fluid. Discussed all results with patient and answer questions. Advised patient Please follow-up with an LANDSCAPING SPECIALIST. You need to have a repeat ultrasound by LANDSCAPING SPECIALIST in 7 to 10 days for viability. May take Tylenol as needed for any cramping. Increase your water intake. Take a vitamin [id number].Return to emergency room for new or worsening symptoms. Critical care attestation.: If time is entered above; I have spent that time in minutes in the direct care of this critically ill patient, excluding procedure time. ED Disposition Clinical Impression: Abdominal cramping Qualifiers: Weeks of gestation: less than 8 weeks Qualified Code(s): Z3A.01 - Less than 8 weeks gestation of Disposition: DC- TO HOME OR SELFCARE Is pt being admited?: No Does the pt Need Aspirin: No Condition: Stable Instructions: First Trimester of , [id number], Abdominal Pain (ED) Additional Instructions: Please follow-up with an LANDSCAPING SPECIALIST. You need to have a repeat ultrasound by LANDSCAPING SPECIALIST in 7 to 10 days for viability. May take Tylenol as needed for any cramping. Increase your water intake. Take a vitamin [id number]. Return to emergency room for new or worsening symptoms. PAC - Aid Clinic Address: [address] [place] [address] [address], [place] [address] Referrals: [facility] [Provider Group] - 2-3 Days TEX CASTRO MD [Staff Physician] - 2-3 Days Time of Disposition: 19:49 Print Language: ECUADOREAN
[2021-06-02 16:55] LABS: Alanine Aminotransferase 15 units/L (7-56); Albumin 4.5 g/dL (3.9-5); Blood Urea Nitrogen 10 mg/dL (7-17); Calcium 9.4 mg/dL (8.4-10.2); Hemolysis Index 14
[2021-06-02 17:01] LABS: BUN/Creatinine Ratio 17
--- NOTE | 2021-06-02 19:46 | Ultrasound Report ---
TRANSABDOMINAL AND TRANSVAGINAL OB PELVIC ULTRASOUND INDICATION / CLINICAL INFORMATION: Pelvic pain and cramping. COMPARISON: None available. FINDINGS: Transabdominal: The uterus measures 9.9 x 4.2 x 4.4 cm. There is a 5 week 2 day gestational sac in th e uterine fundus. No fibroids are seen. The right ovary measures 3.1 x 2.1 x 2.3 cm and the left ovar y 3.9 x 2.3 x 2.8 cm. There is normal blood flow to both ovaries on Doppler exam. There is no evidenc e of extraovarian mass or free fluid. Images of the urinary bladder are normal. Transvaginal: There is an intrauterine gestational sac. There is a questionable pole. No cardia c activity is seen. I do not identify a yolk sac. No implantation hemorrhage is appreciated. The righ t ovary measures 3.4 x 1.9 x 2.7 cm and contains a 1.9 cm corpus luteal cyst. The left ovary measures 2.2 x 1.5 x 1.7 cm. I see no evidence of extraovarian mass or free fluid. IMPRESSION: 1. 5 week 2 day intrauterine is of uncertain viability. A follow-up ultrasound in 7-10 days may be helpful in further evaluation. 2. No evidence of extraovarian mass or free fluid. Signer Name: Vega East MD Signed: 06/02/2021 7:42 PM Workstation Name: [id number]
== END 2021-06-02 16:20 | disposition home or self-care (01) ==
LOC: ED 13:22
DX: O26.891 Other specified pregnancy related conditions, first trimester (principal); R10.30 Lower abdominal pain, unspecified; Z3A.01 Less than 8 weeks gestation of pregnancy; J45.909 Unspecified asthma, uncomplicated; Z79.899 Other long term (current) drug therapy
CPT/HCPCS: 36415; 76801; 76817; 80053; 81001; 81025; 84702; 85025; 99284

== ENCOUNTER 2021-11-28 10:57 | Outpatient (CLI) | payer MEDICAID ==
[2021-11-28] MEDS ORDERED: LACTATED RINGERS 1,000 ML IV ONE (11:31)
[2021-11-28 11:52] LABS: Bilirubin,Urine NEG (Negative); Blood,Urine SM (Negative); Color,Urine Yellow (Yellow); Mucus,Urine 3+ /HPF; Urobilinogen,Urine < 2.0 mg/dL (<2.0)
[2021-11-28 12:07] LABS: Amphetamine Screen,Urine Negative; Benzodiazepines Screen,Urine Negative; Cannabinoid Screen,Urine Negative; Cocaine Screen,Urine Negative; Methadone Screen,Urine Negative; Opiate Screen,Urine Negative
[2021-11-28 14:15] VITALS: BP 109/65
--- NOTE | 2021-11-28 15:37 | Ultrasound Report ---
OB Ultrasound Biophysical profile ultrasound HISTORY: no pnc. TECHNIQUE: Grayscale and color imaging performed. COMPARISON: None FINDINGS: There is a single viable intrauterine gestation with cephalic presentation. CARLI is 13 cm wh ich is within normal limits. Placenta is posterior/fundal with no evidence of placenta previa. Heart rate is 150 bpm. EGA by ultrasound is 30 weeks and 4 days with delivery date of 02/02/2022. Clinical EGA is 31 weeks an d 0 days. Anatomic survey was not performed. On biophysical profile, the fetus received a score of 2 out of 2 for breathing, tone, movement, and A FI. Total score was 8 out of 8. IMPRESSION: 1. Single viable intrauterine gestation as above. 2. Normal biophysical profile. Signer Name: Brendan Carpenter MD Signed: 11/28/2021 3:33 PM Workstation Name: [id number]
== END 2021-11-28 15:27 | disposition home or self-care (01) ==
LOC: TRG 10:57 → APU 10:59 → TRG 15:27
PROVIDERS: ATTEND Obstetrics & Gynecology
DX: O62.9 Abnormality of forces of labor, unspecified (principal); O99.513 Diseases of the respiratory system complicating pregnancy, third trimester; J45.909 Unspecified asthma, uncomplicated; O99.613 Diseases of the digestive system complicating pregnancy, third trimester; K21.9 Gastro-esophageal reflux disease without esophagitis; Z3A.31 31 weeks gestation of pregnancy
CPT/HCPCS: 59025; 76816; 76819; 80307; 81001; 96361; 96365; J0690; J7120

== ENCOUNTER 2021-12-25 10:12 | Outpatient (CLI) | payer MEDICAID ==
[2021-12-25] MEDS ORDERED: LACTATED RINGERS 1,000 ML IV ONE (11:04)
[2021-12-25 11:23] LABS: Bilirubin,Urine NEG (Negative); Blood,Urine SM (Negative); Color,Urine Yellow (Yellow); Protein,Urine <15 mg/dL mg/dL (Negative); Urobilinogen,Urine < 2.0 mg/dL (<2.0)
[2021-12-25 11:27] LABS: Bacteria,Urine 2+ /HPF (Negative)
[2021-12-25] MEDS ORDERED: TERBUTALINE 1 MG/1 ML INJ SUB-Q SCH (13:00)
[2021-12-25] MEDS ORDERED: NIFEdipine*For Tocolysis only* 10 MG CAPSULE PO SCH (13:00)
[2021-12-25 14:20] VITALS: BP 112/64
[2021-12-26] MEDS ORDERED: NIFEdipine XL 30 MG TAB PO ONE (12:30)
== END 2021-12-25 14:30 | disposition home or self-care (01) ==
LOC: TRG 10:12 → APU 10:15 → TRG 14:30
PROVIDERS: ATTEND Obstetrics & Gynecology
DX: O62.9 Abnormality of forces of labor, unspecified (principal); Z3A.34 34 weeks gestation of pregnancy
CPT/HCPCS: 59025; 81001; 96360; J7120; 96361

== ENCOUNTER 2022-01-06 12:18 | Outpatient (CLI) | payer MEDICAID ==
[2022-01-06] MEDS ORDERED: LACTATED RINGERS 1,000 ML IV ONE (13:03)
[2022-01-06 15:28] LABS: Bacteria,Urine 1+ /HPF (Negative); Mucus,Urine 1+ /HPF
[2022-01-06 16:15] LABS: Bilirubin,Urine Negative (Negative); Blood,Urine Negative (Negative); Color,Urine Yellow (Yellow)
[2022-01-06 16:17] LABS: Protein,Urine <15 mg/dL mg/dL (Negative)
[2022-01-06 16:40] VITALS: BP 120/60
== END 2022-01-06 16:45 | disposition home or self-care (01) ==
LOC: TRG 12:18 → APU 12:21 → TRG 16:45
PROVIDERS: ATTEND Obstetrics & Gynecology
DX: O26.893 Other specified pregnancy related conditions, third trimester (principal); R10.30 Lower abdominal pain, unspecified; O62.9 Abnormality of forces of labor, unspecified; Z3A.36 36 weeks gestation of pregnancy
CPT/HCPCS: 59025; 81001; 87086; 96360; J7120

== ENCOUNTER 2022-01-16 12:06 | Outpatient (CLI) | payer MEDICAID ==
[2022-01-16 12:25] VITALS: BP 116/68
--- NOTE | 2022-01-16 13:23 | Ultrasound Report ---
ULTRASOUND BIOPHYSICAL PROFILE INDICATION: decreased fm. COMPARISON: Biophysical profile 11/28/2021 FINDINGS: BREATHING MOVEMENT = 2 GROSS BODY MOVEMENT = 2 TONE = 2 QUALITATIVE AMNIOTIC FLUID VOLUME = 2 TOTAL BIOPHYSICAL SCORE = 06/30 AMNIOTIC FLUID INDEX (cm) = 8.7 PRESENTATION: Cephalic. HEART RATE (beats per minute): 139 IMPRESSION: 1. biophysical profile = 06/30 Signer Name: Tom Dennis MD Signed: 01/16/2022 1:19 PM Workstation Name: [id number]
== END 2022-01-16 13:35 | disposition home or self-care (01) ==
LOC: TRG 12:06 → APU 12:07 → TRG 13:35
PROVIDERS: ATTEND Obstetrics & Gynecology
DX: Z34.93 Encounter for supervision of normal pregnancy, unspecified, third trimester (principal); Z3A.39 39 weeks gestation of pregnancy
CPT/HCPCS: 59025; 76815; 76819

== ENCOUNTER 2022-01-23 17:00 | Inpatient (IN) | payer MEDICAID ==
[2022-01-23] MEDS ORDERED: LIDOCAINE (2%) 20 MG/1 ML VIAL 20 ML MDV INFILTRATI ONE (19:30)
[2022-01-23] MEDS ORDERED: MINERAL OIL 30 ML ORAL LIQD PO PRN (19:30)
[2022-01-23] MEDS ORDERED: miSOPROStol 200 MCG TAB PR PRN (19:30)
[2022-01-23] MEDS ORDERED: ONDANSETRON 4 MG/2 ML INJ IV PRN ×2 (19:30→20:03)
[2022-01-23] MEDS ORDERED: OXYTOCIN 10 UNIT/1 ML INJ IM PRN (19:30)
[2022-01-23] MEDS ORDERED: NALOXONE 0.4 MG/1 ML INJ IV PRN (19:30)
[2022-01-23] MEDS ORDERED: BUTORPHANOL 2 MG/1 ML INJ IV PRN (19:30)
[2022-01-23] MEDS ORDERED: CARBOPROST TROMETHAMINE 250 MCG/1 ML INJ IM PRN (19:30)
[2022-01-23] MEDS ORDERED: LOPERAMIDE 2 MG CAP PO PRN (19:30)
[2022-01-23] MEDS ORDERED: TERBUTALINE 1 MG/1 ML INJ SUB-Q PRN (19:30)
[2022-01-23] MEDS ORDERED: LACTATED RINGERS 1,000 ML IV SCH ×2 (19:30→22:00)
[2022-01-23] MEDS ORDERED: METHYLERGONOVINE MALEATE 0.2 MG/ML VIAL IM PRN (19:30)
[2022-01-23] MEDS ORDERED: ACETAMINOPHEN 325 MG TAB PO PRN (19:30)
[2022-01-23] MEDS ORDERED: fentaNYL 100 MCG/2 ML INJ IV PRN (19:30)
[2022-01-23] MEDS ORDERED: ePHEDrine SULFATE 50 MG/1 ML INJ IV PRN ×2 (19:30→20:03)
[2022-01-23] MEDS ORDERED: OXYTOCIN DRIP 30 UNITS/500 ML BAG IV SCH ×3 (20:00→22:00)
[2022-01-23] MEDS ORDERED: NalbUPHINE 10 MG/1 ML INJ IV PRN (20:03)
[2022-01-23] MEDS ORDERED: LACTATED RINGERS 250 ML IV SOLN IV ONE (20:03)
[2022-01-23] MEDS ORDERED: diphenhydrAMINE 50 MG/ML VIAL IV PRN (20:03)
[2022-01-23] MEDS ORDERED: NALOXONE 2 MG/2 ML INJ IV PRN (20:03)
--- NOTE | 2022-01-23 20:05 | Anesthesia Consultation ---
Anesthesia Consult and Med Hx Date of service: 01/23/22 - Airway Anesthetic Teeth Evaluation: Good ROM Head & Neck: Adequate Mental/Hyoid Distance: Adequate Mallampati Class: Class II Intubation Access Assessment: Probably Good - Pulmonary Exam CTA: Yes - Cardiac Exam Cardiac Exam: RRR - Pre-Operative Health Status ASA Pre-Surgery Classification: ASA2 Proposed Anesthetic Plan: Epidural - Pulmonary Hx Smoking: No Hx Asthma: Yes COPD: No Hx Pneumonia: No Hx Sleep Apnea: No - Cardiovascular System Hx Hypertension: No Hx Heart Attack/AMI: No Hx Angina: No - Central Nervous System Hx Seizures: No Hx Psychiatric Problems: No - Gastrointestinal Hx Gastroesophageal Reflux Disease: No - Endocrine Hx Renal Disease: No Hx End Stage Renal Disease: No Hx Liver Disease: No Hx Insulin Dependent Diabetes: No Hx Non-Insulin Dependent Diabetes: No Hx Hypothyroidism: No Hx Hyperthyroidism: No - Hematic Hx Anemia: No Hx Sickle Cell Disease: No - Other Systems Hx Alcohol Use: Yes
[2022-01-23 20:17] LABS: Hematocrit 31.9 % (30.3-42.9); Hemoglobin 10.6 gm/dl (10.1-14.3); Mean Corpuscular HGB Conc 33 % (30-34); Mean Corpuscular Volume 83 fl (79-97); Platelet Count 193 K/mm3 (140-440); Red Blood Count 3.85 M/mm3 (3.65-5.03); Red Cell Distribution Width 13.9 % (13.2-15.2)
[2022-01-23] MEDS ORDERED: ePHEDrine SULFATE 50 MG/1 ML INJ ONE (20:24)
--- NOTE | 2022-01-23 20:49 | Progress Note ---
Labor Epidural - Labor Epidural Start Time: 22:30 Stop Time: 22:45 Performed by:: MIRIAM VICKERS Procedure: Patient is requesting epidural for labor and pain. H&P, labs were reviewed. Patient IDed, H&P reviewed, all questions and concerns were answered, and consent was signed. Timeout was performed at bedside. Patient in sitting position. Sterile prep and drape was performed. 3ml of 1% lidocaine skin wheal at L[3]- L [4]. 17-gauge Tuohy epidural needle was advanced to loss of resistance with air technique 6.5cm. Negative CSF negative blood. Epidural catheter advanced to [12] centimeters. [negative] Aspiration [negative] test dose. Sterile dressing applied. Patient tolerated procedure.
[2022-01-23] MEDS ORDERED: fentaNYL-BUPIV 2 MCG/ML-0.125% 200 MCG/100 ML BAG EPIDURAL SCH (21:00)
[2022-01-23] MEDS ORDERED: ceFAZolin/Water 2 GM/20 ML 2 GM/20 ML SYRINGE IV NR (22:00)
[2022-01-23] MEDS ORDERED: FAMOTIDINE 20 MG/2 ML INJ IV ONE (22:00)
[2022-01-23] MEDS ORDERED: METOCLOPRAMIDE 10 MG/2 ML INJ IV ONE (22:00)
[2022-01-23] MEDS ORDERED: BICITRA ORAL LIQD 30ML PO ONE (22:00)
--- NOTE | 2022-01-23 22:00 | History and Physical Report ---
History of Present Illness Date of examination: 01/23/22 Date of admission: 01/23/22 19:30 Chief complaint: contractions History of present illness: Pt is a 26 year old -[place] female MABLE 01/30/22 at 39w0d who presents with regular painful contractions and cervical change from 3cm to 5 cm while being evaluated in triage. She denies vaginal bleeding and leakage of fluid. She has had care at [facility] since transfer into care at 31 wks that has been uncomplicated. She is GBS negative. Past History Past Medical History: asthma Past Surgical History: no surgical history Family/Genetic History: diabetes, hypertension Social history: no significant social history - Obstetrical History Expected Date of Delivery: 01/30/22 Actual Gestation: 39 Week(s) 0 Day(s) : 4 Para: 2 Hx # Term Pregnancies: 2 Number of Pregnancies: 0 Spontaneous Abortions: 1 Induced : 0 Number of Living Children: 2 Medications and Allergies Allergies Allergy/AdvReac Type Severity Reaction Status Date / Time No Known Allergies Allergy Verified 06/02/21 14:19 Home Medications Medication Instructions Recorded Confirmed Last Taken Type Pnv 21/Iron Ps,Heme Ppep/Folic 1 each PO QDAY #30 tablet 03/29/14 08/28/18 08/26/18 10:00 Rx [Prefera Ob Tablet] HYDROcodone/ACETAMINOPHEN [[place] 1 each PO Q4H #20 tablet 08/28/18 Unknown Rx 5-325 Tablet] Ibuprofen [Motrin] 800 mg PO Q8HR PRN #40 tablet 08/28/18 Unknown Rx Cyclobenzaprine [Flexeril] 10 mg PO TID PRN #30 tablet 08/31/18 Unknown Rx Oseltamivir [Tamiflu] 75 mg PO BID 5 Days #10 capsule 11/15/19 Unknown Rx Nitrofurantoin [place]/M-Cryst 100 mg PO Q12HR 7 Days #14 capsule 11/28/21 Unknown Rx [Macrobid CAP] Active Meds: Active Medications Acetaminophen (Acetaminophen 325 Mg Tab) 650 mg PO Q4H PRN PRN Reason: Pain, Mild (1-3) Butorphanol Tartrate (Butorphanol 2 Mg/1 Ml Inj) 1 mg IV Q2H PRN PRN Reason: Pain, Moderate(4-6) LABOR PAIN Carboprost Tromethamine (Carboprost Tromethamine 250 Mcg/1 Ml Inj) 250 mcg IM ONCE PRN PRN Reason: Uterine Bleeding Diphenhydramine HCl (Diphenhydramine 50 Mg/Ml Vial) 12.5 mg IV Q2H PRN PRN Reason: Itching Ephedrine Sulfate (Ephedrine Sulfate 50 Mg/1 Ml Inj) 10 mg IV Q2M PRN PRN Reason: Hypotension Fentanyl (Fentanyl 100 Mcg/2 Ml Inj) 100 mcg IV Q2H PRN PRN Reason: Pain,Severe (7-10) LABOR PAIN Oxytocin/Sodium Chloride (Pitocin/Ns 30 Unit/500ml) 30 units in 500 mls @ 2 mls/hr IV TITR EVA; Protocol Lactated Ringer's (Lactated Ringers) 1,000 mls @ 125 mls/hr IV DIRECT EVA Oxytocin/Sodium Chloride (Pitocin/Ns 30 Unit/500ml) 30 units in 500 mls @ 40 mls/hr IV TITR EVA; Protocol Fentanyl/Bupivacaine/Sodium Chlor (Fentanyl-Bupiv 2 Mcg/Ml-0.125%) 200 mcg in 100 mls @ 12 mls/hr EPIDURAL TITR EVA; Protocol Loperamide HCl (Loperamide 2 Mg Cap) 2 mg PO ONCE PRN PRN Reason: give with Hemabate Methylergonovine Maleate (Methylergonovine Maleate 0.2 Mg/Ml Vial) 0.2 mg IM ONCE PRN PRN Reason: Uterine Bleeding Mineral Oil (Mineral Oil 30 Ml Oral Liqd) 30 ml PO QHS PRN PRN Reason: Constipation Misoprostol (Misoprostol 200 Mcg Tab) 800 mcg IA ONCE PRN PRN Reason: Uterine Bleeding Nalbuphine HCl (Nalbuphine 10 Mg/1 Ml Inj) 2.5 mg IV Q2H PRN PRN Reason: Itching Naloxone HCl (Naloxone 2 Mg/2 Ml Inj) 0.2 mg IV Q5M PRN PRN Reason: Respiratory sedation Ondansetron HCl (Ondansetron 4 Mg/2 Ml Inj) 4 mg IV Q8H PRN PRN Reason: Nausea And Vomiting Oxytocin (Oxytocin 10 Unit/1 Ml Inj) 10 unit IM ONCE PRN PRN Reason: Uterine Bleeding Terbutaline Sulfate (Terbutaline 1 Mg/1 Ml Inj) 0.25 mg SUB-Q ONCE PRN PRN Reason: Hyperstimulation/Hypertonicity Review of Systems All systems: negative - Vital Signs Vital signs: Vital Signs Pulse BP 99 H 134/90 01/23/22 17:22 01/23/22 17:22 Temp Pulse Resp BP Pulse Ox 98.5 F 105 H 20 138/72 100 01/23/22 21:07 01/23/22 21:57 01/23/22 17:26 01/23/22 21:57 01/23/22 21:57 - Physical Exam Breasts: Positive: deferred Abdomen: Positive: soft (gravid ) Genitourinary (Female): Positive: normal external genitalia Uterus: Positive: enlarged (gravid ) Extremities: Positive: normal - Obstetrical FHR: category 2 Uterine Contraction Monitor Mode: External Cervical Dilatation: 5 (per RN ) Cervical Effacement Percentage: 90 station: -2 Uterine Contraction Pattern: Regular Uterine Tone Measurement Phase: Resting Uterine Contraction Intensity: Moderate Results Result Diagrams: 01/23/22 19:30 All other labs normal. Assessment and Plan A: IUP at 39w0d Active labor Obesity GBS Negative P: Admit to labor and delivery Routine intrapartum care Continue to monitor clinical status
--- NOTE | 2022-01-23 22:03 | Anesthesia Day of Surgery ---
Anesthesia Day of Surgery - Day of Surgery Patient Examined: Yes Patient H&P Reviewed: Yes Patient is NPO: Yes Beta Blockers: No Cardiac Clearance: No Pulmonary Clearance: No Nilton's Test: N/A
--- NOTE | 2022-01-23 22:07 | Event Note ---
Date: 01/23/22 Pt with sustained tachycardia despite resuscitation measures of fluid bolus, position change and oxygen supplementation. AROM- meconium stained fluid. SVE: /-2. Plan to proceed with delivery.
[2022-01-23] MEDS ORDERED: LIDOCAINE 2%/EPINEPHRINE 1:200,000 VIAL (20 ML) INFILTRATI ONE (22:20)
[2022-01-23] MEDS ORDERED: ONDANSETRON 4 MG/2 ML INJ ONE (22:20)
[2022-01-23] MEDS ORDERED: dexAMETHasone 20 MG/5 ML VIAL ONE (22:20)
[2022-01-23] MEDS ORDERED: BUPIVACAINE/PF (0.25%) 2.5 MG/ML 30 ML VIAL INFILTRATI ONE (22:20)
[2022-01-23] MEDS ORDERED: WATER FOR IRRIG STERILE 1,500 ML BOTTLE IR ONE (22:42)
[2022-01-23] MEDS ORDERED: ceFAZolin/STERILE WATER 2 GM/20 ML SYRINGE IV ONE (22:42)
[2022-01-23] MEDS ORDERED: SODIUM CHLORIDE 0.9% IRR 1,500 ML BOTTLE IR ONE (22:42)
[2022-01-23] MEDS ORDERED: LACTATED RINGERS 1,000 ML ONE (22:55)
[2022-01-23] MEDS ORDERED: LIDOCAINE MPF (2%) 20 MG/1 ML VIAL 5 ML ONE (23:32)
--- NOTE | 2022-01-24 00:14 | Procedure Note ---
OB Delivery Note - Delivery Date of Delivery: 01/24/22 Surgeon: LUCIANA GURROLA Estimated blood loss: other (EBL 700 mL) - Section Preop diagnosis: nonreassuring FHR tracing Postop diagnosis: same section procedure: section, primary low transverse Disposition: PACU Narrative: Please see delivery note - Infant A at 1 minute: 8 at 5 minutes: 9 Gender: Male (3310g (7lb 5oz) @ 2259 pm)
--- NOTE | 2022-01-24 00:30 | Operative Report ---
Operative Report Operative Report: Date of procedure: January 23, 2022 Preoperative diagnosis: 1) IUP at 39w0d 2) Active Labor 3) Tachycardia 4 )Obesity Postoperative diagnosis: Same Procedure: Primary low transverse section Surgeon: Angella Villela M.D. Anesthesia: Regional Findings: 1) Viable male , Apgars 8 and 9, weight 3310 g, (7 lb 5 oz) in cephalic presentation. Nuchal cord x 1. Terminal meconium. 2) Normal-appearing uterus ovaries and tube 3) Vertical extension in the lower uterine segment Estimated blood loss: 700 mL IV fluids: 800 mL Urine output: 250 mL, clear at the end of the procedure Drains: Ca to gravity Specimens: None Complications:None. Counts correct x 3 Disposition: Stable to PACU Indication for procedure: Pt is a 26 year old -[place] female at 39w0d presents in active labor, then persistent tachycardia remote from delivery. The decision was made to proceed with section. Operation in detail: After the risks, benefits, alternatives and complications were explained to the patient she gave informed consent for the procedure. She was subsequently taken to the operating room where regional anesthesia was noted to be adequate. She was placed in the dorsal supine position with leftward tilt and prepped and draped in a normal sterile fashion. heart tones were noted prior to incision. A timeout was performed. A Pfannenstiel skin incision was made with the knife and carried down to the layer of the fascia with the Bovie. The fascia was incised in the midline and the fascial incision was extended bilaterally with the Bovie. The fascial incision was then stretched. The rectus muscles were then in the midline and partially transected for adequate visualization. The peritoneum was then entered bluntly. The peritoneal incision was extended with good visualization of the bladder. The peritoneal incision was then stretched. An Irc retractor was placed. The bladder blade was then placed. The vesicouterine peritoneum was grasped with smooth pick ups and incised with Metzenbaum scissors . A bladder flap was then created digitally and the bladder blade was replaced. A transverse incision was made in the lower uterine segment with a knife and extended bilaterally with the bandage scissors. Amniotomy was performed with egress of clear fluid. head delivered with ease, followed by shoulders and body. bulb suctioned at delivery. Cord clamped and cut. handed to NICU staff in attendance. Cord blood was collected. The placenta was then delivered manually. The uterus was then exteriorized and cleared of all clots and debris. The vertical extension inferior to the hysterotomy was reapproximated with 0- Monocryl in a running locked fashion. The hysterotomy was then reapproximated with 0 Monocryl in a running locked fashion. The peritoneum was reapproximated with 2-0 chromic in a running fashion. The hysterotomy was inspected and hemostasis was noted. The gutters were irrigated and cleared of all clots and debris. The uterus was placed back into the peritoneal cavity. The hysterotomy was again inspected and noted to be hemostatic. Surgicel was placed over the hysterotomy. The Ric retractor was removed. The peritoneum was reapproximated with 0 Monocryl in a running fashion incorporating the rectus muscles. Surgicel was placed over the rectus muscles. The fascia was reapproximated with 0 Vicryl in a running fashion. The subcutaneous tissue was reapproximated with 3-0 Vicryl in a running fashion. The skin was reapproximated with 3-0 Monocryl in a subcuticular fashion. The incision was then covered with steri strips and a pressure dressing. The procedure was then ended. The patient tolerated the procedure well and was taken to the PACU in stable condition. All instrument, lap, and needle counts were correct 3.
[2022-01-24] MEDS ORDERED: NALOXONE 0.4 MG/1 ML INJ IV PRN (01:27)
[2022-01-24] MEDS ORDERED: HYDROmorphone 1 MG/1 ML INJ IV PRN (01:27)
[2022-01-24] MEDS ORDERED: OXYTOCIN DRIP 30 UNITS/500 ML BAG IV SCH (01:27)
[2022-01-24] MEDS ORDERED: D5W/LACTATED RINGERS 1,000 ML IV SCH (01:27)
[2022-01-24] MEDS ORDERED: LANOLIN/ZINC/DIMETHICONE (LANSINOH) 7 GM TP PRN (01:27)
[2022-01-24] MEDS ORDERED: WITCH HAZEL/ GLYCERIN PAD TP PRN (01:27)
[2022-01-24] MEDS ORDERED: ONDANSETRON 4 MG/2 ML INJ IV PRN (01:27)
[2022-01-24] MEDS ORDERED: MAGNESIUM HYDROXIDE (MOM) ORAL LIQD UDC PO PRN (01:27)
[2022-01-24] MEDS: IBUPROFEN 800 MG TAB PO SCH ×3 (01:30→21:53)
[2022-01-24] MEDS: HYDROmorphone 1 MG/1 ML INJ IV PRN ×2 (02:24→09:03)
[2022-01-24] MEDS: oxyCODONE /ACETAMINOPHEN 5-325MG TAB PO PRN ×5 (04:55→23:55)
[2022-01-24] MEDS: ceFAZolin/NS 1 GM/50 ML 1 GM/50 ML BAG IV SCH ×2 (05:24→14:12)
--- NOTE | 2022-01-24 07:51 | Progress Note ---
Assessment and Plan - Patient Problems (1) delivery delivered Current Visit: Yes Status: Acute Plan to address problem: Routine care Subjective - Subjective Date of service: 01/24/22 Interval history: Patient is currently without any significant complaints. Discussed the plan of care. Patient reports: pain well controlled [place]: doing well Objective - Vital Signs Latest vital signs: Vital Signs Temp Pulse Resp BP BP Pulse Ox Pulse Ox 01/24/22 03:29 98 01/24/22 02:54 98 01/24/22 02:24 98 01/24/22 01:30 97.9 F 70 18 106/71 96 96 01/24/22 01:12 98.7 F 70 16 117/73 98 01/24/22 01:00 74 14 119/72 94 01/24/22 00:45 70 18 116/72 95 01/24/22 00:30 76 16 113/71 96 01/24/22 00:20 83 14 115/71 96 01/24/22 00:16 80 8 L 111/63 96 01/24/22 00:11 98 F 93 H 14 111/67 97 01/23/22 22:17 94 H 116/59 100 01/23/22 22:15 103 H 116/57 01/23/22 22:13 102 H 113/62 01/23/22 22:12 107 H 100 01/23/22 22:11 100 H 118/61 01/23/22 22:09 100 H 116/61 01/23/22 22:07 99 H 122/71 100 01/23/22 22:05 93 H 118/70 01/23/22 22:03 96 H 121/64 01/23/22 22:02 96 H 119/61 100 01/23/22 22:01 86 117/58 01/23/22 21:59 104 H 123/61 01/23/22 21:57 105 H 138/72 100 01/23/22 21:53 101 H 114/55 01/23/22 21:52 104 H 100 01/23/22 21:51 101 H 111/63 01/23/22 21:49 88 122/66 01/23/22 21:47 86 119/66 100 01/23/22 21:45 92 H 107/59 01/23/22 21:43 93 H 96/53 03/03/22 21:42 98 H 100 01/23/22 21:41 90 107/55 01/23/22 21:39 83 110/58 01/23/22 21:37 90 112/56 100 01/23/22 21:35 100 H 107/56 01/23/22 21:33 104 H 112/59 01/23/22 21:32 110 H 100 01/23/22 21:31 96 H 113/58 01/23/22 21:29 106 H 115/56 01/23/22 21:27 104 H 116/57 100 01/23/22 21:25 115 H 109/56 01/23/22 21:23 86 104/57 01/23/22 21:22 97 H 85/48 100 01/23/22 21:21 100 H 87/43 01/23/22 21:19 100 H 93/46 01/23/22 21:17 105 H 100 01/23/22 21:15 108 H 108/62 01/23/22 21:13 98 H 100/57 01/23/22 21:12 102 H 100 01/23/22 21:11 105 H 99/57 01/23/22 21:09 108 H 102/59 01/23/22 21:07 98.5 F 106 H 104/62 100 01/23/22 21:05 104 H 102/57 01/23/22 21:03 107 H 108/55 01/23/22 21:02 105 H 100 01/23/22 21:01 112 H 108/56 01/23/22 20:59 108 H 101/57 01/23/22 20:57 111 H 106/60 100 01/23/22 20:55 112 H 114/56 01/23/22 20:53 103 H 124/69 01/23/22 20:52 102 H 100 01/23/22 20:51 97 H 128/68 01/23/22 20:49 100 H 134/67 01/23/22 20:47 112 H 148/84 100 01/23/22 20:45 104 H 135/69 01/23/22 20:43 97 H 135/75 01/23/22 20:42 101 H 100 01/23/22 20:41 96 H 135/78 01/23/22 20:39 86 128/78 01/23/22 20:37 91 H 129/78 100 01/23/22 20:35 87 127/76 01/23/22 20:34 96 H 125/77 01/23/22 20:32 102 H 100 01/23/22 20:28 70 86 01/23/22 20:27 82 97 01/23/22 20:22 94 H 98 01/23/22 20:17 111 H 99 01/23/22 20:12 94 H 97 01/23/22 20:07 91 H 99 01/23/22 20:02 91 H 97 01/23/22 19:57 89 98 01/23/22 19:52 94 H 98 01/23/22 17:59 102 H 99 01/23/22 17:54 99 H 134/89 99 01/23/22 17:49 104 H 98 01/23/22 17:44 92 H 98 01/23/22 17:39 93 H 136/89 99 01/23/22 17:34 101 H 96 01/23/22 17:29 101 H 98 01/23/22 17:26 98.9 F 100 H 20 134/90 98 01/23/22 17:24 103 H 98 01/23/22 17:22 99 H 134/90 Intake and Output 01/23/22 01/24/22 01/24/22 22:59 06:59 14:59 Intake Total 1700 Output Total 4450 Balance -2750 Intake: IV 1300 Oral 400 Output: Urine 4450 Indwelling Catheter 1500 Uretheral (Ca) 2600 Other: Total, Intake Amount 200 Total, Output Amount 800 Weight 89.811 kg Estimated Blood Loss 250 - Exam Incision: Present: dressed
--- NOTE | 2022-01-24 12:42 | Post Anesthesia Evaluation ---
- Post Anesthesia Evaluation Patient Participated: Yes Airway Patent: Yes Stable Respiratory Function: Yes Nausea/Vomiting: No Temp > 96.8F: Yes Pain Manageable: Yes Adequeate Hydration: Yes Anesthesia Complications: No Block Receding Appropriately: Yes Patient on Ventilator: No
[2022-01-24 14:57] LABS: Hematocrit 28.9 % (30.3-42.9); Hemoglobin 9.7 gm/dl (10.1-14.3)
[2022-01-24] MEDS: SIMETHICONE 80 MG CHEW TAB PO PRN ×2 (15:59→23:57)
[2022-01-25] MEDS: IBUPROFEN 800 MG TAB PO SCH ×3 (00:19→17:31)
[2022-01-25] MEDS: oxyCODONE /ACETAMINOPHEN 5-325MG TAB PO PRN ×5 (04:11→22:35)
[2022-01-25] MEDS ORDERED: MEASLES, MUMPS & RUBELLA 12,500 UNIT/0.5 ML VACCINE SUB-Q ONE (06:00)
[2022-01-25] MEDS ORDERED: TETANUS,DIPH,PERTUSS(ACELL) VACCINE 0.5 ML SYRINGE IM ONE (06:00)
[2022-01-25] MEDS: SIMETHICONE 80 MG CHEW TAB PO PRN ×2 (08:53→17:42)
--- NOTE | 2022-01-25 14:43 | Progress Note ---
Assessment and Plan POD 1 s/p ltcs. Doing well.Plan for discharge on tomorrow Subjective - Subjective Date of service: 01/25/22 Patient reports: appetite normal, voiding normally, pain well controlled, ambulating normally : doing well Objective - Vital Signs Latest vital signs: Vital Signs Temp Pulse Resp BP BP Pulse Ox Pulse Ox 01/25/22 11:30 97 01/25/22 08:45 20 01/25/22 08:44 20 01/25/22 08:27 99.5 F 72 18 127/70 97 01/25/22 07:55 99 01/24/22 23:55 16 01/24/22 23:45 98.7 F 79 18 98/58 96 01/24/22 22:37 97 01/24/22 21:53 18 01/24/22 20:40 99.4 F 71 18 107/55 96 01/24/22 19:52 18 01/24/22 18:03 98.2 F 78 18 114/71 100 01/24/22 15:53 20 Intake and Output 01/24/22 01/25/22 01/25/22 22:59 06:59 14:59 Intake Total 240 480 240 Output Total 1300 Balance -1060 480 240 Intake: Oral 240 480 240 Output: Urine 1300 Void 1300 Other: Total, Intake Amount 240 240 240 Total, Output Amount 1300 # Voids Void 3 1 1 - Exam Breasts: Present: deferred Cardiovascular: Present: Regular rate, Normal S1, Normal S2 Lungs: Present: Clear to auscultation, Normal air movement Abdomen: Present: normal appearance, soft Vulva: both: normal Uterus: Present: normal, firm Extremities: Present: normal Incision: Present: normal, dry, intact - Labs Labs: Abnormal lab results 01/24/22 Range/Units 14:37 Hgb 9.7 L (10.1-14.3) gm/dl Hct 28.9 L (30.3-42.9) %
--- NOTE | 2022-01-25 14:45 | Discharge Summary ---
Providers - Providers Date of Admission: 01/23/22 19:30 Date of discharge: 01/26/22 Attending physician: LUCIANA GURROLA 01/24/22 01:27 Consult to [employer] [CONS] Routine Reason For Exam: Primary care physician: LUCIANA GURROLA Hospitalization Reason for admission: active labor Delivery: Procedure: primary low transverse Episiotomy: none Incision: dry, intact complications: none Discharge diagnosis: IUP at term delivered [place] baby: male Hospital course: unremarkable Condition at discharge: Good Disposition: 01 HOME / SELF CARE / HOMELESS Plan - Discharge Medications Prescriptions: Docusate Sodium [Colace] 100 mg PO BID PRN #30 capsule PRN Reason: Constipation Ibuprofen [Motrin] 800 mg PO Q8HR PRN #60 tablet PRN Reason: Pain , Severe (7-10) oxyCODONE /ACETAMINOPHEN [Percocet 5/325] 1 tab PO Q6HR PRN #30 tablet PRN Reason: Pain - Provider Discharge Summary Activity: routine, no sex for 6 weeks, no heavy lifting 4 weeks, no strenuous exercise Diet: routine Instructions: routine Additional instructions: [] Smoking cessation referral if applicable(refer to patient education folder for contact #) [] Refer to [facility] Booklet Call your doctor immediately for: * Fever > 100.5 * Heavy vaginal bleeding ( >1 pad per hour) * Severe persistent headache * Shortness of breath * Reddened, hot, painful area to leg or breast * Drainage or odor from incision. * Keep incision clean and dry at all times and follow doctor's instructions regarding bathing/showering - Follow up plan Follow up: LUCIANA GURROLA MD [Primary Care Provider] - 7 Days
[2022-01-25] MEDS ORDERED: FERROUS SULFATE 325 MG TAB PO SCH (22:00)
[2022-01-26] MEDS: IBUPROFEN 800 MG TAB PO SCH ×2 (02:08→06:57)
[2022-01-26] MEDS: oxyCODONE /ACETAMINOPHEN 5-325MG TAB PO PRN ×2 (02:11→06:58)
[2022-01-26 09:00] VITALS: BP 121/73
== END 2022-01-26 10:29 | disposition home or self-care (01) | DRG 766 ==
LOC: TRG 17:00 → APU 17:01 → LD 19:28 → TRG 19:30 → LD 19:30 → OB 01-24 02:48
PROVIDERS: ADMIT Obstetrics & Gynecology; ATTEND Obstetrics & Gynecology
PROC: 10D00Z1 Extraction of Products of Conception, Low, Open Approach (ICD-10-PCS; principal; 2022-01-24)
PROC: 3E0234Z Introduction of Serum, Toxoid and Vaccine into Muscle, Percutaneous Approach (ICD-10-PCS; 2022-01-25)
DX: O76 Abnormality in fetal heart rate and rhythm complicating labor and delivery (principal); Z3A.39 39 weeks gestation of pregnancy; Z37.0 Single live birth; Z23 Encounter for immunization; O99.52 Diseases of the respiratory system complicating childbirth; J45.909 Unspecified asthma, uncomplicated; O99.214 Obesity complicating childbirth; O77.0 Labor and delivery complicated by meconium in amniotic fluid; O69.81X0 Labor and delivery complicated by cord around neck, without compression, not applicable or unspecified; Z20.822 Contact with and (suspected) exposure to COVID-19
CPT/HCPCS: 36415; 85014; 85018; 85027; 86592; 86850; 86900; 86901; 99211; G0378; J3490; J7060; G0463; J0690; J1100; J1170; J2405; J2765; J7120; J7121; U0003